=== PATIENT | female | born 1940 | race Caucasian/White ===

== ENCOUNTER 2017-02-07 01:38 | Inpatient (IN) | payer OTHER ==
[~2017-02-07] VITALS: Ht 154.9 cm; Wt 68.0 kg
[~2017-02-07 01:38] MED LIST: OMEPRAZOLE40 M1 PO
--- NOTE | 2017-02-07 12:52 | NUCLEAR MEDICINE REPORT ---
EXAMINATION: RADIONUCLIDE BREAST LYMPHOSCINTIGRAPHY CLINICAL INDICATION: 76-year-old female with clinically known invasive lobular carcinoma involving the right breast. Presurgical lymphoscintigraphy is requested. COMPARISON: None. TECHNIQUE: Following the subareolar injection of 1.07 millicuries technetium 99m Lymphoseek by myself, images of the right breast and axilla were obtained using a gamma camera fitted with a high-resolution parallel hole collimator. Specific note is made of presence of a skin marker which was placed to the right and anterior abdominal wall, located inferolateral, anterior to the right breast. FINDINGS: There is visualization of a lymphatic channel and a discrete focus of activity in the right axilla. Second echelon nodes are also noted, showing minimal radiotracer activity. IMPRESSION: A discrete sentinel node in the right axilla is visualized. Following this imaging study, the patient was transported to the operating room for a probe guided lymph node resection.
--- NOTE | 2017-02-07 13:00 | Admission Core Measures ---
Acute Coronary Syndrome Inclusion Criteria ACS Diagnosis No Inpatient Core Measures LDL Reminder: If No, please order W/I first 24hr of stay Congestive Heart Failure Inclusion Criteria CHF Diagnosis No Cerebrovascular accident Inclusion Criteria CVA/TIA Diagnosis No Inpatient Core Measures Bedside Swallow Eval Reminder: If BSE failed, place ST order Antithrombotic Reminder: Order Antithrombotic Medication by end of day 2 Antithrombotic Reminder: Document Reason Antithrombotic Not ordered by end of day 2 AFIB/Flutter Reminder: If Present, add to problem list AFIB/Flutter Reminder: Order Anticoag Medication for pts with AFIB/Flutter Atherosclerosis Reminder: If Present, add to problem list LDL Reminder: If No, please order W/I first 24hr of stay PT Order Reminder: If No, please order Venous thromboembolism Inpatient Core Measures VTE Risk Factors: Age > 40, Cancer/chemo/oth therapy, [facility] prophylaxis d/t No contraindications No VTE Pharm Prophylaxis d/t No contraindications Inclusion Criteria - Per Current guidelines, there needs to be overlap - treatment for the first 5 days of Warfarin therapy. - Parenteral Anticoagulation (IV or SC) needs to be - given along with Warfarin therapy. VTE Diagnosis No VTE Type NONE VTE Confirmed by (Test) NONE Problem List As ranked by this Provider includes Assessment & Plan 1. Breast cancer 2. S/P mastectomy 3. Status post breast reduction HOME MEDS Home Med List Omeprazole 40 MG CAPSULE. 1 CAP PO DAILY GERD (Reported)
--- NOTE | 2017-02-07 13:10 | Operative Report ---
Operative/Inv Procedure Report Surgery Date: 02/07/17 Name of Procedure: Right mastectomy and sentinel lymph node biopsy Pre-Operative Diagnosis: Right breast multifocal breast cancer Post-Operative Diagnosis: Same Estimated Blood Loss: less than 50ml Surgeon/Dye Can Operator: SUSAN HERMAN MD Anesthesia: general endotracheal tube Specimens: Right breast, sentinel lymph node 2 Operative/Procedure Note Note: Patient brought to the operating room on 02/07/2017. 2 g of Ancef was given and anesthesia was administered. 3 mL of methylene blue diluted with 2 mL of saline was injected in the retroareolar fashion. Bilateral breasts were prepped and draped in a sterile fashion using ChloraPrep. The right breast was approached. Curvilinear incisions were made above and below the nipple areolar complex. Skin flaps were raised superiorly to the level of the clavicle Ammann medially to the sternum, inferiorly to the superior border the rectus sheath and laterally to the latissimus. The breast was then removed from the pectoralis fashion. A suture was used to lubna the medial breast. Hemostasis was maintained with electrocautery and ties. The axilla was then approached. A hot lymph node was identified and excised. An adjacent hot lymph node was also excised. The specimens were sent for pathology. There were no other hot, blue, or palpable lymph nodes in the axilla. The wound was irrigated with sterile saline. Hemostasis is adequate. A #10 ASHLEE drain was placed. This was fastened to the skin using a nylon suture. Deep tissue was approximated using interrupted Vicryl sutures, and the skin was closed using running Biosyn subcuticular stitch. Steri-Strips and sterile dressings were applied, and the patient was transferred to the recovery room in satisfactory condition having tolerated the procedure well. Patient had a simultaneous contralateral reduction by Dr. Yap
--- NOTE | 2017-02-07 13:17 | Operative Report ---
Operative/Inv Procedure Report Surgery Date: 02/07/17 Name of Procedure: left Breast Reduction Pre-Operative Diagnosis: Absent right breast left-sided hypertrophy Post-Operative Diagnosis: Same Estimated Blood Loss: 50ml to 100ml Surgeon/Track Service Person: marcella Anesthesia: general endotracheal tube Operative/Procedure Note Note: Patient was counseled in regards to the procedure the alternatives risks and expected outcomes related to request surgical intervention to symmetric rise by reducing the volume of the left breast pseudohypertrophy symptoms and absent right breast. We talked about a sided breast reduction the patient has accepted. [facility] informed consents were given. She was marked in the standing position for an inferior pedicle De Jesus pattern technique. She was then brought to the operative placed supine on the table of Venodyne boots are placed and then general anesthesia was established intravenous antibiotics were given. The chest was prepped and draped in usual sterile fashion. Dr. Benson (a right -sided mastectomy and sentinel lymph node biopsy. The left side had underwent a de jesus pattern technique inferior pedicle breast reduction removing mediolateral superior segments with a 3 layer closure.
--- NOTE | 2017-02-07 14:30 | NUR ---
ARRIVED FROM PACU. A & O X 3. ON RA. VSS. C/O NAUSEA AND PAIN 6/10 TO CHEST. C/O GENERALIZED TIGHTNESS. MORPHINE PRN AND ZOFRAN PRN GIVEN. ASSISTED TO BED. SURGICAL BRA IN PLACE, GAUZE PADS BENEATH C/D/I. ASHLEE DRAIN WITH NO DRAINAGE NOTED TO RIGHT BREAST. ORIENTED TO CALL SYSTEM. IVF INFUSING. WILL MONITOR.
[2017-02-07 14:33] VITALS: BP 134/80
--- NOTE | 2017-02-07 15:45 | PN- General Surgery ---
Subjective Subjective: POST-OP CHECK some nausea, no vomiting. little relief with zofran. no cp/sob. pain well controlled. Objective Vital Signs and I&Os Vital Signs Date Time Temp Pulse Resp B/P B/P Pulse O2 O2 Flow FiO2 Mean Ox Delivery Rate 02/07 1433 97.3 55 16 134/80 98 Room Air Physical Exam: gen: nad card: s1s2 rrr pulm: no audible wheeze breast: bra on, dressings cdi, jpx1 with serosang drainage, ttp at incisions, flaps with steris- pink ext: calves soft nt bl Assessment/Plan Assessment/Plan A: POD0 s/p right mastectomy with sn bx, left breast reduction, with postop nausea, stable. P: prn pain meds zofran, compazine prn nausea reg diet, HL once tolerates i&os jessica to self suction po home meds hep sq, oob, ambulate am cbc dc planning will dw attending Core Measures/Miscellaneous Venous Thromboembolism VTE Risk Factors: Age > 40, Cancer/chemo/oth therapy, Surgery VTE Contraindications: No Contraindications VTE Diagnosis: No VTE Type: NONE VTE Confirmed by (Test): NONE Beta Duglas Is Beta Duglas a Home Med? No Antibiotics Is Patient on Antibiotics? Yes
[2017-02-07 16:54] VITALS: BP 108/62
[2017-02-07 18:46] VITALS: BP 150/70
[2017-02-07 20:30] VITALS: BP 134/66
[2017-02-08 00:25] VITALS: BP 112/60
[2017-02-08 04:29] VITALS: BP 112/68
--- NOTE | 2017-02-08 07:24 | Surgical Discharge Summary ---
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 Home Who Do You Live With? Spouse Services at Home: None What is Your Primary Language? Latvian Review of Systems: Negative Hospital Course Course Attending Physician: SUSAN HERMAN MD [facility] Course: Patient was admitted on 02/07/2017 and underwent a right mastectomy and sentinel lymph node biopsy with a left reduction mammoplasty. She experienced some postoperative nausea and vomiting. By the morning of postoperative day 1 she felt well with adequate pain control. Incisions were intact with no evidence of hematoma. ASHLEE drain was serosanguineous. She was discharged home with ASHLEE drains and one week follow-up. Allergies: Coded Allergies: Penicillins (Severe, RASH / SWELLING 02/02/17) Disposition Summary Disposition Principal Diagnosis: Right breast cancer Additional Diagnosis: None Discharge Disposition: home or self care Discharge Instructions General Discharge Information Code Status: Full Code Patient's Diet: As tolerated Patient's Activity: As tolerated Follow-Up Instructions/Appts: 1 week follow-up with Dr. Yap and Dr. Herman
[2017-02-08 08:03] LABS: ABSOLUTE BASOPHIL COUNT 0 /CUMM (0.0-0.2); ABSOLUTE EOSINOPHIL COUNT 0 /CUMM (0.0-0.7); ABSOLUTE GRANULOCYTE CT 5.6 /CUMM (1.4-6.5); ABSOLUTE LYMPH COUNT 1.8 /CUMM (1.2-3.4); ABSOLUTE MONOCYTE COUNT 0.7 /CUMM (0.10-0.60); BASOPHIL % 0.3 % (0.0-2.0); EOSINOPHIL % 0.5 % (0-5); GRANULOCYTE % 68.8 % (42.2-75.2); HEMATOCRIT 34.3 % (37-47); MEAN CORPUSCULAR HGB 29.8 PG (27.0-31.0); MEAN CORPUSCULAR HGB CONC 33.5 G/DL (33.0-37.0); MEAN PLATELET VOLUME 8.7 FL (7.4-10.4); PLATELET COUNT 184 /CUMM (130-400); RBC DISTRIBUTION WIDTH 14.1 % (11.5-14.5); RED BLOOD CELL CT 3.85 /CUMM (4.20-5.40); WHITE BLOOD CELL COUNT 8.2 /CUMM (4.8-10.8)
--- NOTE | 2017-02-08 08:34 | PN- General Surgery ---
Subjective Subjective: No acute events overnight. Patient admitted to mild nausea last night that has since resolved. Denies any nausea or emesis this morning. Able to tolerate regular diet for breakfast. Denies any current incisional pain, received Motrin this morning. Denies any chest pain or SOB. She is voiding freely and ambulating to the bathroom. Objective Vital Signs and I&Os Vital Signs Date Time Temp Pulse Resp B/P B/P Pulse O2 O2 Flow FiO2 Mean Ox Delivery Rate 02/08 0429 98.4 56 18 112/68 96 Room Air 02/08 0025 98.7 61 18 112/60 97 Room Air 02/07 2030 97.5 63 18 134/66 96 Room Air 02/07 1846 97.5 68 20 150/70 96 Room Air 02/07 1654 98.0 71 16 108/62 95 Room Air 02/07 1433 97.3 55 16 134/80 98 Room Air Intake & Output 02/08 1600 / 0800 / 0000 / 1600 02/07 0800 02/07 0000 Intake Total 700 225 Output Total 725 400 0 Balance -25 -175 0 Intake, IV 700 225 Output, 25 50 0 Drainage Output, Urine 700 350 Patient 150 lb Weight Weight Reported by Patient Measurement Method Physical Exam: General: Sitting in bed in NAD. Chest: RRR. Dressings c/d/i. No evidence of drainage of hematoma. Bra in place. Minimal discomfort to palpation. Pulmonary: CTAB LE: + pedal edema. Assessment/Plan Assessment/Plan A: 76 y/o female POD# 1 s/p right mastectomy with sn bx, left breast reduction complicated by post op nausea that has since resolved. - Regular diet as tolerated - d/c IVF - PO pain meds prn - Antiemetics prn nausea - Continue PO home meds - Encourage OOB and ambulation - ASHLEE to self suction - VNA offered but patient states she is able to take care of her ASHLEE drain at home - ASHLEE teaching performed at the bedside with patient and daughter - DVT ppx - HSQ - Plan for d/c home this am - will d/w attending Core Measures/Miscellaneous Venous Thromboembolism VTE Risk Factors: Age > 40, Cancer/chemo/oth therapy, Surgery VTE Contraindications: No Contraindications VTE Diagnosis: No VTE Type: NONE VTE Confirmed by (Test): NONE Beta Duglas Is Beta Duglas a Home Med? No Antibiotics Is Patient on Antibiotics? Yes
[2017-02-08] MEDS ORDERED: TYLENOL WITH C1 EACH PO (08:37)
--- NOTE | 2017-02-08 08:52 | Patient Discharge Instructions ---
Discharge Instructions General Discharge Information You were seen/treated for: Right breast cancer You had these procedures: Right mastectomy and sentinel lymph node biopsy with a left reduction mammoplasty. Watch for these problems: Fever > 101.5, chest pain, shortness of breath, nausea or vomiting, severe pain, or signs of wound infection. Call Surgeon to remove: Follow up 1 week for ASHLEE drain removal. Do not soak the wound: Yes Daily wet to dry dressings: No No bath, but you may shower: Yes Other wound care: When showering may allow water to hit your back. Cover incisions with dry sterile gauze and apply bra following. Special Instructions: ASHLEE drain care: Empty and record ASHLEE drain output daily and as needed. Bring this record to your follow up appointment. Change ASHLEE drain dressing daily. Diet Continue normal diet: Yes Recommended Diet: Regular Activity Full Activity/No Limits: No Activity Self Limited: Yes Pounds, do NOT lift more than: 10 Activity Limited to: Weight bear as tolerated Other activity limits: Do not lift R arm above 90 degrees (shoulder height) until follow up. Acute Coronary Syndrome Inclusion Criteria At DC or during hospital stay patient has or had the following: ACS DIAGNOSIS No Discharge Core Measures Meds if any: Prescribed or Continued at Discharge Meds if any: NOT Prescribed or Continued at Discharge Congestive Heart Failure Inclusion Criteria At DC or during hospital stay patient has or had the following: CHF DIAGNOSIS No Discharge Core Measures Meds if any: Prescribed or Continued at Discharge Meds if any: NOT Prescribed or Continued at Discharge Cerebrovascular accident Inclusion Criteria At DC or during hospital stay patient has or had the following: CVA/TIA Diagnosis No Discharge Core Measures Meds if any: Prescribed or Continued at Discharge Meds if any: NOT Prescribed or Continued at Discharge Venous thromboembolism Inclusion Criteria VTE Diagnosis No VTE Type NONE VTE Confirmed by (Test) NONE Discharge Core Measures - Per Current guidelines, there needs to be overlap - treatment for the first 5 days of Warfarin therapy. - If discharged on Warfarin prior to 5 days of - overlap therapy, the patient will need to be - assessed for post discharge needs including - *Post discharge parental anticoagulation - *Warfarin and/or parental anticoagulation education - *Follow up date to check INR post discharge At least 5 days overlap therapy as Inpatient No Meds if any: Prescribed or Continued at Discharge Note: Overlap Therapy is Warfarin and Anticoagulant Meds if any: NOT Prescribed or Continued at Discharge
== END 2017-02-08 10:30 | DRG 581 ==
LOC: SDA 01:38 → 2NA 01:38 → EDSTATUS 07:00 → STS 07:00 → SDA 07:00 → XRY 10:00 → ENRESERV 13:21 → 2NA 14:07 → ENPENDDIS 02-08 08:53 → 2NA 02-08 10:30
PROVIDERS: Physician Assistant Surgical; ADMIT Surgery
PROC: 07B50ZX Excision of Right Axillary Lymphatic, Open Approach, Diagnostic (ICD-10-PCS; principal; 2017-02-07)
PROC: 0HTT0ZZ Resection of Right Breast, Open Approach (ICD-10-PCS; principal; 2017-02-07)
PROC: 0H0U0ZZ Alteration of Left Breast, Open Approach (ICD-10-PCS; 2017-02-07)
PROC: 0HBU3ZZ Excision of Left Breast, Percutaneous Approach (ICD-10-PCS; 2017-02-07)
DX: C50.911 Malignant neoplasm of unspecified site of right female breast (principal); E78.5 Hyperlipidemia, unspecified; N62 Hypertrophy of breast; K21.9 Gastro-esophageal reflux disease without esophagitis; K44.9 Diaphragmatic hernia without obstruction or gangrene; Z87.891 Personal history of nicotine dependence; M85.80 Other specified disorders of bone density and structure, unspecified site; R11.0 Nausea
CPT/HCPCS: 2NAP; 88305; 88307; A9520; J0131; J0690; J0780; J1100; J1644; J2270; J2405; J7042